=== PATIENT | female | born 1995 | race Caucasian/White ===

== ENCOUNTER 2017-05-23 05:36 | Inpatient (IN) ==
[2017-05-23] MEDS ORDERED: CITRIC ACID/SODIUM CITRATE 30 ML UDCUP PO ONE (06:00)
[2017-05-23] MEDS ORDERED: FAMOTIDINE 20 MG/2 ML VIAL IV ONE (06:00)
[2017-05-23] MEDS ORDERED: ceFAZolin 2,000 MG in PREMIX 1 EACH IV ONE (06:00)
[2017-05-23] MEDS: LACTATED RINGERS 1,000 ML IV SCH ×2 (06:10→18:50)
[2017-05-23] MEDS ORDERED: OXYTOCIN/LR 20 UNIT/1,000 ML BAG IV ONE ×2 (06:30→10:24)
[2017-05-23 06:32] LABS: Basophils % 0.2 % (0.0-0.8); Eosinophils # 0.1 10*3/uL (0.0-0.87); Eosinophils % 0.8 % (0.00-10.9); Hematocrit 32.9 VOL% (35.7-47.0); Hemoglobin 10.8 GM/DL (12.0-16.0); Immature Granulocytes % 0.7 %; Lymphocytes # 2.5 10*3/uL (1.4-4.0); Lymphocytes % 17.3 % (21.3-54.2); Mean Corpuscular HGB Conc 32.8 GM/DL (32-36); Mean Corpuscular Hemoglobin 28 PG (27-34); Monocytes # 0.9 10*3/uL (0.11-0.8); Neutrophils # 10.7 10*3/uL (1.4-7.4); Platelet Count 252 T/CUMM (130-400); Red Blood Count 3.87 MC/CUMM (3.8-5.5); Red Cell Distribution Width 13.9 % (9.3-17.3); White Blood Count 14.3 T/CUMM (4-12)
[2017-05-23 06:51] LABS: Apearance,Urine Slightly Hazy (Clear); Bilirubin,Urine Negative (Negative); Blood, Urine Negative (Negative); Glucose,Urine (UA) Negative (Negative); Ketones,Urine 5 mg/dL (Negative); Mucus,Urine Many /LPF (Occasional); Nitrite,Urine Negative (Negative); Protein,Urine 30 MG/DL; RBC,Urine 6 /HPF (0-4); Squamous Epithelial Cell,Urine Occasional /HPF (0-10); Urine Color Yellow (Yellow); Urine Urobilinogen < 2.0 EU/DL (0.2-1.0); WBC,Urine 1 /HPF (0-6)
[2017-05-23 06:51] LABS: INR 0.9; PT Patient Result 9.4 SECS; Partial Thromboplastin Time 25.6 SECS (0-40)
[2017-05-23 06:57] LABS: Alanine Aminotransferase 30 U/L (13-56); Albumin 2.4 G/DL (3.4-5.0); Alkaline Phosphatase 118 U/L (45-117); Aspartate Amino Transferase 18 U/L (0-37); Bilirubin,Total < 0.39 MG/DL (0.2-1.0); Blood Urea Nitrogen 14 MG/DL (7-18); Calcium 9.4 MG/DL (8.5-10.1); Glucose 82 MG/DL (74-106); Osmolality,Calculated 276.5 MOS/KG (273-304); Potassium 4.4 MMOL/L (3.5-5.1); Sodium 139 MMOL/L (136-145); Total Protein 6.1 G/DL (6.4-8.3)
[2017-05-23] MEDS ORDERED: HYDROCORTISONE 2.5% RECTAL CREAM 30 GM TUBE TOP PRN (10:24)
[2017-05-23] MEDS ORDERED: LANOLIN 50% CREAM 0.3 OZ TUBE TOP PRN (10:24)
[2017-05-23] MEDS ORDERED: BENZOCAINE 20%/MENTHOL 0.5% SPRAY 56 GM CAN TOP PRN (10:24)
[2017-05-23] MEDS ORDERED: BISACODYL 10 MG SUPP RECTAL PRN (10:24)
[2017-05-23] MEDS ORDERED: MEASLES/MUMPS/RUBELLA VACCINE 0.5 ML VIAL SUBCUT ONE (10:24)
[2017-05-23] MEDS ORDERED: WITCH HAZEL PADS 100/JAR TOP PRN (10:24)
[2017-05-23] MEDS ORDERED: DIPH/TET/ACEL PERT BOOSTER VACCINE 0.5 ML VIAL IM ONE (10:24)
[2017-05-23] MEDS ORDERED: RHO(D) IMMUNE GLOBULIN 300 MCG SYRINGE IM ONE (10:24)
[2017-05-23] MEDS ORDERED: ACETAMINOPHEN 325 MG TABLET PO PRN (10:24)
[2017-05-23] MEDS ORDERED: oxyCODONE/ACETAMINOPHEN 5-325 MG TABLET PO PRN (10:24)
[2017-05-23] MEDS ORDERED: MORPHINE 10 MG/10 ML VIAL ONE (10:25)
[2017-05-23] MEDS ORDERED: ONDANSETRON 4 MG/2 ML VIAL ONE (10:25)
[2017-05-23] MEDS: ONDANSETRON 4 MG/2 ML VIAL IV PRN (17:20)
[2017-05-23] MEDS: HYDROmorphone 2 MG/1 ML VIAL IV PRN (17:20)
[2017-05-23] MEDS: oxyCODONE/ACETAMINOPHEN 5-325 MG TABLET PO PRN (22:20)
[2017-05-24] MEDS: IBUPROFEN 800 MG TABLET PO PRN ×4 (02:17→23:58)
[2017-05-24] MEDS: HYDROmorphone 2 MG/1 ML VIAL IV PRN (02:18)
[2017-05-24] MEDS: ONDANSETRON 4 MG/2 ML VIAL IV PRN (02:19)
[2017-05-24 06:04] LABS: Basophils % 0.2 % (0.0-0.8); Eosinophils # 0.1 10*3/uL (0.0-0.87); Eosinophils % 0.8 % (0.00-10.9); Hematocrit 28.8 VOL% (35.7-47.0); Hemoglobin 9.5 GM/DL (12.0-16.0); Immature Granulocytes % 0.7 %; Immature Granulocytes Absolute 0.07 #; Lymphocytes # 1.6 10*3/uL (1.4-4.0); Mean Corpuscular Hemoglobin 28 PG (27-34); Mean Corpuscular Volume 83.7 FL (87-102); Mean Platelet Volume 10.1 FL (9.6-12.0); Monocytes # 0.8 10*3/uL (0.11-0.8); Neutrophils # 7.5 10*3/uL (1.4-7.4); Neutrophils % 74.3 % (38.7-73.9); Platelet Count 198 T/CUMM (130-400); Red Blood Count 3.44 MC/CUMM (3.8-5.5); Red Cell Distribution Width 14.1 % (9.3-17.3)
[2017-05-24] MEDS: DOCUSATE SODIUM 100 MG CAPSULE PO SCH ×3 (08:21→22:19)
[2017-05-24] MEDS: MULTIVITAMIN (PRENATAL) TABLET PO SCH (08:21)
[2017-05-24] MEDS: oxyCODONE/ACETAMINOPHEN 5-325 MG TABLET PO PRN ×2 (16:39→23:57)
[2017-05-25] MEDS: oxyCODONE/ACETAMINOPHEN 5-325 MG TABLET PO PRN (06:24)
[2017-05-25] MEDS: IBUPROFEN 800 MG TABLET PO PRN (06:24)
[2017-05-25 07:20] VITALS: BP 134/80
[2017-05-25] MEDS: MULTIVITAMIN (PRENATAL) TABLET PO SCH (09:04)
[2017-05-25] MEDS: DOCUSATE SODIUM 100 MG CAPSULE PO SCH (09:04)
== END 2017-05-25 13:25 | disposition home or self-care (01) | DRG 765 ==
LOC: N.LDOUT 05:36 → N.LD 05:50 → N.OB 12:50
PROVIDERS: ADMIT Specialist; ATTEND Specialist
PROC: LDCSECT (ICD-10-PCS; 2017-05-23 07:30)

== ENCOUNTER 2022-06-01 11:55 | Inpatient (IN) ==
[2022-06-01] MEDS ORDERED: CITRIC ACID/SODIUM CITRATE 30 ML UDCUP PO ONE (12:02)
[2022-06-01] MEDS ORDERED: miSOPROStoL 200 MCG TABLET RECTAL PRN (12:02)
[2022-06-01] MEDS ORDERED: METHYLERGONOVINE 0.2 MG/1 ML AMP IM PRN (12:02)
[2022-06-01] MEDS ORDERED: ceFAZolin 2,000 MG/50 ML DUPLEX IV ONE (12:02)
[2022-06-01] MEDS ORDERED: FAMOTIDINE 20 MG/2 ML VIAL IV ONE (12:02)
[2022-06-01] MEDS ORDERED: TRANEXAMIC ACID 1,000 MG in SODIUM CHLORIDE 0.9% 100 ML IV PRN (12:02)
[2022-06-01] MEDS ORDERED: CARBOPROST TROMETHAMINE 250 MCG/ML AMP IM PRN (12:02)
[2022-06-01] MEDS ORDERED: OXYTOCIN/LR 20 UNIT/1,000 ML BAG IV ONE ×3 (12:02→19:37)
[2022-06-01] MEDS ORDERED: ONDANSETRON 4 MG/2 ML VIAL ONE ×2 (12:16→17:22)
[2022-06-01] MEDS ORDERED: METOCLOPRAMIDE 10 MG/2 ML VIAL ONE (12:16)
[2022-06-01] MEDS ORDERED: buprenorphine HCL 0.3 MG/ML VIAL ONE (12:17)
[2022-06-01 12:22] LABS: Basophils % 0.3 % (0.0-0.8); Eosinophils # 0.1 10*3/uL (0.0-0.87); Eosinophils % 0.5 % (0.00-10.9); Hematocrit 39.4 VOL% (35.7-47.0); Hemoglobin 12.5 GM/DL (12.0-16.0); Immature Granulocytes % 1.3 %; Immature Granulocytes Absolute 0.16 #; Lymphocytes % 16.3 % (21.3-54.2); Mean Corpuscular HGB Conc 31.7 GM/DL (32-36); Mean Corpuscular Volume 86.4 FL (87-102); Mean Platelet Volume 9.2 FL (9.6-12.0); Monocytes # 0.6 10*3/uL (0.11-0.8); Monocytes % 4.8 % (1.7-12.7); Neutrophils % 76.8 % (38.7-73.9); Platelet Count 256 T/CUMM (130-400); Red Blood Count 4.56 MC/CUMM (3.8-5.5)
[2022-06-01 12:36] LABS: INR 0.9; PT Patient Result 9.9 SECS (10.1-12.1); Partial Thromboplastin Time 24.5 SECS (23.7-32.9)
[2022-06-01 12:39] LABS: Alanine Aminotransferase 36 U/L (13-56); Albumin 2.8 G/DL (3.4-5.0); Alkaline Phosphatase 161 U/L (45-117); Aspartate Amino Transferase 13 U/L (0-37); Bilirubin,Direct < 0.100 MG/DL (0.0-0.20); Bilirubin,Total < 0.39 MG/DL (0.20-1.00); Blood Urea Nitrogen 8 MG/DL (7-18); Calcium 9.1 MG/DL (8.5-10.1); Carbon Dioxide 20 MMOL/L (21-32); Chloride 109 MMOL/L (98-107); Glucose 75 MG/DL (74-106); Osmolality,Calculated 264.2 MOS/KG (273-304); Sodium 134 MMOL/L (136-145); Total Protein 7.5 G/DL (6.4-8.2); Uric Acid 4.2 MG/DL (2.6-6.0)
[2022-06-01] MEDS: LACTATED RINGERS 1,000 ML IV SCH ×2 (12:39→16:24)
[2022-06-01 17:20] LABS: Mucus,Urine Occasional /LPF (Occasional); RBC,Urine 1 /HPF (0-4); Squamous Epithelial Cell,Urine Occasional /HPF (0-10)
[2022-06-01 17:21] LABS: Bilirubin,Urine Negative (Negative); Blood, Urine Negative (Negative); Glucose,Urine (UA) Negative (Negative); Ketones,Urine 40 mg/dL (Negative); Nitrite,Urine Negative (Negative); Protein,Urine Negative (Negative); Urine Appearance Clear (Clear); Urine Color Yellow (Yellow); Urine Specific Gravity 1.015 (1.001-1.035); Urine Urobilinogen 0.2 eU/dL (<2.0)
[2022-06-01] MEDS ORDERED: PHENYLEPHRINE 1 MG/10 ML SYRINGE IV ONE (17:21)
[2022-06-01] MEDS ORDERED: LACTATED RINGERS 1,000 ML IV ONE (17:22)
[2022-06-01 17:29] LABS: Cord Arterial Blood HCO3 22.7 MMOL/L
[2022-06-01 17:31] LABS: Cord Venous Blood HCO3 23.1 MMOL/L; Cord Venous Blood PCO2 41.1 MMHG; Cord Venous Blood PO2 32.3
[2022-06-01] MEDS ORDERED: DIPH/TET/ACEL PERT BOOSTER VACCINE 0.5 ML VIAL IM ONE (19:37)
[2022-06-01] MEDS ORDERED: MEASLES/MUMPS/RUBELLA VACCINE 0.5 ML VIAL SUBCUT ONE (19:37)
[2022-06-01] MEDS ORDERED: RHO(D) IMMUNE GLOBULIN 300 MCG SYRINGE IM ONE (19:37)
[2022-06-01] MEDS ORDERED: oxyCODONE/ACETAMINOPHEN 5-325 MG TABLET PO PRN ×2 (19:37)
[2022-06-01] MEDS ORDERED: WITCH HAZEL PADS 100/JAR TOP PRN (19:37)
[2022-06-01] MEDS ORDERED: ONDANSETRON 4 MG/2 ML VIAL IV PRN (19:37)
[2022-06-01] MEDS ORDERED: LANOLIN 50% CREAM 0.3 OZ TUBE TOP PRN (19:37)
[2022-06-01] MEDS ORDERED: BENZOCAINE 20%/MENTHOL 0.5% SPRAY 56 GM CAN TOP PRN (19:37)
[2022-06-01] MEDS ORDERED: IBUPROFEN 800 MG TABLET PO PRN (19:37)
[2022-06-01] MEDS ORDERED: BISACODYL 10 MG SUPP RECTAL PRN (19:37)
[2022-06-01] MEDS ORDERED: HYDROCORTISONE 2.5% RECTAL CREAM 30 GM TUBE TOP PRN (19:37)
[2022-06-01] MEDS ORDERED: ACETAMINOPHEN 325 MG TABLET PO PRN (19:37)
[2022-06-01] MEDS: ACETAMINOPHEN 500 MG TABLET PO SCH (20:53)
[2022-06-01] MEDS: DOCUSATE SODIUM 100 MG CAPSULE PO SCH (21:05)
[2022-06-01] MEDS: KETOROLAC 30 MG/1 ML VIAL IV SCH (23:16)
[2022-06-02] MEDS: ACETAMINOPHEN 500 MG TABLET PO SCH ×2 (02:19→14:31)
[2022-06-02] MEDS: KETOROLAC 30 MG/1 ML VIAL IV SCH ×2 (04:40→11:39)
[2022-06-02 05:08] LABS: Basophils % 0.3 % (0.0-0.8); Eosinophils # 0.1 10*3/uL (0.0-0.87); Eosinophils % 1.2 % (0.00-10.9); Hematocrit 32.1 VOL% (35.7-47.0); Hemoglobin 10.1 GM/DL (12.0-16.0); Immature Granulocytes % 1.1 %; Immature Granulocytes Absolute 0.12 #; Lymphocytes # 1.8 10*3/uL (1.4-4.0); Lymphocytes % 16.9 % (21.3-54.2); Mean Corpuscular HGB Conc 31.5 GM/DL (32-36); Mean Corpuscular Volume 87.5 FL (87-102); Mean Platelet Volume 9.9 FL (9.6-12.0); Monocytes # 0.7 10*3/uL (0.11-0.8); Monocytes % 6.4 % (1.7-12.7); Neutrophils % 74.1 % (38.7-73.9); Platelet Count 213 T/CUMM (130-400); Red Blood Count 3.67 MC/CUMM (3.8-5.5); Red Cell Distribution Width 14.1 % (9.3-17.3); White Blood Count 10.64 T/CUMM (4-12)
[2022-06-02] MEDS: DOCUSATE SODIUM 100 MG CAPSULE PO SCH ×2 (10:05→21:56)
[2022-06-03 10:20] VITALS: BP 141/79
[2022-06-03] MEDS: DOCUSATE SODIUM 100 MG CAPSULE PO SCH (10:46)
== END 2022-06-03 11:10 | disposition home or self-care (01) | DRG 788 ==
LOC: N.LD 11:55 → N.OB 21:20
PROVIDERS: ADMIT Specialist; ATTEND Specialist
PROC: LDCSECT (ICD-10-PCS; 2022-06-01 16:00)